=== PATIENT | male | born 1995 | race Caucasian/White ===

== ENCOUNTER 2020-07-21 16:03 | Emergency (ER) | payer SELFPAY ==
[~2020-07-21] VITALS: Ht 180.3 cm; Wt 60.0 kg
[2020-07-21 16:45] LABS: BASOPHILS % (AUTO) 1 % (0-1); EOSINOPHILS % (AUTO) 5 % (1-7); LYMPHOCYTES % (AUTO) 40 % (22-44); MEAN CORPUSCULAR HEMOGLOBIN 32.2 pg (27.5-34.5); MEAN CORPUSCULAR HGB CONC 35.3 g/dL (33.2-36.2); MONOCYTES % (AUTO) 6 % (2-9); NEUTROPHILS % (AUTO) 49 % (42-75); PLATELET COUNT 261 x10^3/uL (130-400); RED BLOOD COUNT 5.42 x10^6/uL (4.38-5.82); RED CELL DISTRIBUTION WIDTH 12.9 % (9.4-14.8)
[2020-07-21 16:51] LABS: ALBUMIN 4.6 g/dL (3.4-5.0); ANION GAP 6 mmol/L (5-15); CALCIUM 9.2 mg/dL (8.5-10.1); CHLORIDE 110 mmol/L (98-107); CREATININE 0.96 mg/dL (0.7-1.3); MD NO
[2020-07-21 16:54] LABS: TROPONIN I < 0.015 ng/mL (0.000-0.045)
--- NOTE | 2020-07-21 17:51 | NUR ---
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
--- NOTE | 2020-07-21 18:06 | NUR ---
"ABOUT A WEEK AGO I STARTED HAVING CHEST PAIN. IT HASNT GONE AWAY. IT COMES AND GOES. NOT CURRENTLY HAVING IT" PT TO BED WITH STEADY GAIT. ATTACHED TO MONITORS. ODALYS. JEFF. AWAITING ORDERS.
[2020-07-21 18:41] VITALS: BP 128/77
== END 2020-07-21 19:31 | disposition home or self-care (01) ==
LOC: ED 19:25
DX: R07.89 Other chest pain (principal); R94.31 Abnormal electrocardiogram [ECG] [EKG]; F17.200 Nicotine dependence, unspecified, uncomplicated
CPT/HCPCS: 36415; 71045; 80048; 82040; 84484; 85025; 85379; 93005; 99285